=== PATIENT | male | born 1990 | race Hispanic/Latino ===

== ENCOUNTER 2017-03-30 22:53 | Emergency (ER) | payer OTHER ==
[~2017-03-30] VITALS: Ht 175.3 cm; Wt 97.5 kg
--- NOTE | 2017-03-30 23:33 | ED HAND/WRIST INJURY COMPLAINT ---
History of Present Illness General Chief Complaint: Hand or Wrist Injury Stated Complaint: RT WRIST X1 WK Source: patient Exam Limitations: no limitations Vital Signs & Intake/Output Vital Signs & Intake/Output Vital Signs Date Time Temp Pulse Resp B/P B/P Pulse O2 O2 Flow FiO2 Mean Ox Delivery Rate 03/31 0052 98.1 67 18 142/60 98 Room Air 03/31 0028 Room Air 03/30 2319 98.3 69 16 151/62 97 Room Air ED Intake and Output 03/31 0000 03/30 1200 Intake Total Output Total Balance Patient 215 lb Weight Weight Reported by Patient Measurement Method Allergies Coded Allergies: No Known Allergies (03/30/17) Reconcile Medications No Known Home Medications Triage Note: TRIAGE: C/O PAIN TO RADIAL WRIST JOINT AREA X A FEW WEEKS, WORSE WITH GRIPPING AND MAKING A FIST. PT ENDORSES INCREASED PHYSICAL TRAINING RECENTLY, BUT DENIES TRAUMA OR INJURY. NO SWELLING OR OBVIOUS DEFORMITY OBSERVED. +CMS TO FINGERS AND STRONG RADIAL PULSE. MEDICATED WITH MOTRIN IN TRIAGE Triage Nurses Notes Reviewed? yes Occurred: 1 week Duration: week(s): (1) Timing: no prior history Injury Environment: home Severity: moderate Severity Numbers: 6 Pain/Injury Location: Right: Wrist. Context: overuse Method of Injury: unknown Modifying Factors: Improves With: immobilization. Worsens With: movement. HPI: Patient is a 26-year-old male with no medical history presenting to the emergency department with chief complaint of right wrist painfor week or so. Over the past several weeks he reports he's been increasing his physical activity, has been increasing bike riding and weight lifting. Denies any specific trauma. No numbness or tingling. Has not been taking any medications to help with symptoms. He is right-handed. Denies excessive testing. Denies any other injuries or pain. Pain is worse with grasping. (SATYA BEGUM) Past History Travel History Traveled to [place] past 21 day No Medical History Any Pertinent Medical History? see below for history Neurological: NONE EENT: NONE Cardiovascular: NONE Respiratory: NONE Gastrointestinal: NONE Hepatic: NONE Renal: NONE Musculoskeletal: NONE Psychiatric: NONE Endocrine: NONE Blood Disorders: NONE Cancer(s): NONE Surgical History Surgical History: none Psychosocial History What is your primary language Tajik Tobacco Use: Never used ETOH Use: occasional use Illicit Drug Use: denies illicit drug use Family History Hx Contributory? No (SATYA BEGUM) Review of Systems Review of Systems Constitutional: Reports: no symptoms. Comments Review of systems: See HPI, All other systems negative. Constitutional, no chills fever or weight loss HEENT: No visual changes no sore throat no congestion Cardiovascular: No chest pain Skin, no jaundice no rashes Respiratory: No dyspnea cough GI: No nausea no vomiting Muscle skeletal: no back pain, no neck pain, Neurologic: No numbness Psych: No stress anxiety Immunology: No splenectomy or history of AIDS (SATYA BEGUM) Physical Exam Physical Exam General Appearance: well developed/nourished, no apparent distress, alert, awake , comfortable Hand Left: normal inspection, normal range of motion Hand Right: tender Comments: Well-developed well-nourished person in no acute distress HEENT: . Nose is atraumatic. Neck: Normal inspection Cardiovascular: , radial pulses are 2+ bilaterally. Respiratory: No respiratory distress. Extremity: No edema, mild tenderness to palpation over the distal radial area on the right wrist, full range of motion of right wrist without difficulty. Pain with Phalen tests. Negative Dana test. Print Color Operator strength is equal and symmetric bilaterally. Neuro: Alert oriented x3, motor sensory normal Skin: No appreciable rash on exposed skin, skin is warm and dry. Psych: Mood and affect is normal, memory and judgment is normal. (SATYA BEGUM) Progress Differential Diagnosis: contusion, compartment syndrome, dislocation, fracture, sprain, tenosynovitis Plan of Care: Orders Procedure Date/time Status Durable Medical Equipment 03/31 0033 Active XRY-WRIST COMPLETE-RIGHT 03/31 0001 Active Diagnostic Imaging: Viewed by Me: Radiology Read. Radiology Impression: no acute abnormality, no fracture, no dislocation Comments: Patient given ibuprofen on arrival for pain. He was informed of x-ray results. Likely sprain versus tendinitis. He will be started on anti-inflammatory regimen. Also given brace. He'll follow up with orthopedics if symptoms persist. (SATYA BEGUM) Departure Departure Time of Disposition: 30 Disposition: HOME OR SELF CARE Condition: Stable Clinical Impression Primary Impression: Wrist sprain Qualifiers: Encounter type: initial encounter Laterality: right Qualified Code: S63.501A - Unspecified sprain of right wrist, initial encounter Referrals: AJIT MUKHERJEE,JENI Isabel Additional Instructions: Follow-up with orthopedics if symptoms persist. Wear brace for support. Rest ice and elevate affected extremity. Take [id number] ibuprofen 600 mg every 6-8 hours for the next 2-3 days. Make sure he have something in her stomach when he take this medication as it can cause an upset stomach. This will help with inflammation. Avoid overuse of the right wrist. Departure Forms: Customer Survey General Discharge Information Prescriptions: Current Visit Scripts No Known Home Medications (SATYA BEGUM) PA/GRADUATE RESEARCH ASSISTANT Co-Sign Statement Statement: ED Attending supervision documentation- [] I saw and evaluated the patient. I have also reviewed all the pertinent lab results and diagnostic results. I agree with the findings and the plan of care as documented in the PA's/GRADUATE RESEARCH ASSISTANT's documentation. [X] I have reviewed the ED Record and agree with the PA's/GRADUATE RESEARCH ASSISTANT's documentation. [] Additions or exceptions (if any) to the PAs/GRADUATE RESEARCH ASSISTANT's note and plan are summarized below: [] (DARCIE MUKHERJEE,KAMRON Phillip)
[2017-03-31 00:52] VITALS: BP 142/60
--- NOTE | 2017-03-31 01:09 | RADIOLOGY REPORT ---
EXAMINATION: XR WRIST, RIGHT CLINICAL INFORMATION: Pain after boxing. COMPARISON: No relevant prior imaging available. TECHNIQUE: AP, lateral, and oblique views of the right wrist. FINDINGS: There is no acute fracture or dislocation. Joint spaces are maintained. Proximal and distal carpal rows are intact. There is negative ulnar variance. Soft tissues are unremarkable. IMPRESSION: Unremarkable radiographs of the right wrist with no evidence of acute fracture or dislocation.
== END 2017-03-31 00:55 ==
LOC: ERH 22:53
DX: S63.501A Unspecified sprain of right wrist, initial encounter (principal); X50.9XXA Other and unspecified overexertion or strenuous movements or postures, initial encounter; Y93.55 Activity, bike riding; Y93.B3 Activity, free weights; Y92.9 Unspecified place or not applicable
CPT/HCPCS: 73110-RT